=== PATIENT | male | born 1970 | race Two or more races ===

== ENCOUNTER 2024-05-12 14:51 | Emergency (ER) | payer MEDICAID, SELFPAY ==
[2024-05-12 14:53] VITALS: BMI 28.5
[2024-05-12 15:06] VITALS: BP 146/101; PULSE 61; RESP 20; TEMP 36.8; O2SAT 98
--- NOTE | 2024-05-12 15:11 | XR_ITS ---
Examination: PA lateral chest 2 views TECHNIQUE: Upright PA lateral chest 2 views Exam date and time: May 12, 2024 1541 hours INDICATIONS: Chest pain today FINDINGS: Normal heart size. Lungs are clear. The osseous structures are intact IMPRESSION: No active disease
--- NOTE | 2024-05-12 15:11 | EKG_ITS ---
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
--- NOTE | 2024-05-12 15:11 | XR_ITS ---
Examination: CT brain head without contrast. 2-D sagittal coronal reconstructions Date and time of exam:May 12, 2024 1535 hours INDICATIONS: Onset left-sided head pain and numbness today CTDI: vol (mGy):57.4 DLP: (mGycm):1252 Technique: Multiple CT axial sections of the brain have been obtained, 5 mm slice thickness. Contrast has not been administered. 2-D sagittal, coronal reconstructions have been obtained Low dose protocols were performed. One or more of the following dose reduction techniques were used; automated exposure control, adjustment of the mA and/or KV according to patient size, use of iterative reconstruction technique. Findings: No significant ventricular enlargement. Intra-axial or extra-axial hemorrhage density is not seen. No mass effect or midline shift Basal cisterns are not remarkable. Fourth ventricle is midline. Cranial vault intact. Impression: Negative for acute hemorrhage, mass effect or midline shift As clinically warranted, brain MRI follow-up would best assess for demyelinating disease, acute ischemic change
--- NOTE | 2024-05-12 15:12 | PD.EDRME ---
Rapid Medical Screening Exam RME Arrival date/time: 05/12/24 14:51 53-year-old male presents emergency dept today with complaints of joint pain left-sided chest pain and left-sided head pain Chief Complaint: Neuro Symptoms/Deficit Vital signs: Vital Signs Temperature 98.3 F 05/12/24 15:06 Pulse Rate 61 05/12/24 15:06 Respiratory Rate 20 05/12/24 15:06 Blood Pressure 146/101 H 05/12/24 15:06 Pulse Oximetry (%) 98 05/12/24 15:06 Oxygen Delivery Method Room Air 05/12/24 15:06
[2024-05-12 15:35] LABS: Basophils # (Auto) 0.1 Thou/mm3 (0.0-0.2); Basophils % (Auto) 1 % (0-2.5); Eosinophils # (Auto) 0.2 Thou/mm3 (0.0-0.5); Eosinophils % (Auto) 2 % (0-10); Hematocrit 42.9 % (41.0-53.0); Immature Granulocytes % (Auto) 0 % (0-0); Immature Granulocytes Auto 0.02 Thou/mm3 (0.00-0.00); Lymphocytes # (Auto) 2.8 Thou/mm3 (1.0-4.8); Lymphocytes % (Auto) 33 % (10-50); Mean Corpuscular Hemoglobin 30.2 pg (25.0-35.0); Mean Corpuscular Volume 86 fL (80-100); Monocytes # (Auto) 0.6 Thou/mm3 (0.0-0.8); Monocytes % (Auto) 7 % (0-12); Neutrophils # (Auto) 4.9 Thou/mm3 (1.8-7.7); Neutrophils % (Auto) 57 % (37-80); Nucleated Red Blood Cell % 0 /100 WBC (0); Platelet Count 185 Thou/mm3 (140-440); RDW Standard Deviation 39.6 fL (35.1-43.9); Red Blood Count 4.97 Miln/mm3 (4.50-5.90); White Blood Count 8.6 Thou/mm3 (3.8-10.6)
[2024-05-12 15:54] LABS: B-Type Natriuretic Peptide < 20 pg/mL (0-100)
[2024-05-12 15:56] LABS: Alanine Aminotransferase 84 U/L (10-49); Albumin, Serum 4.6 gm/dL (3.5-5.0); Albumin/Globulin Ratio 1.6 (1.2-2.2); Alkaline Phosphatase 136 U/L (46-116); Anion Gap 7 (7-16); Aspartate Amino Transferase 46 U/L (0-34); BUN/Creatinine Ratio 9 Ratio (12-20); Bilirubin,Total 1.5 mg/dL (0.3-1.2); Blood Urea Nitrogen 9 mg/dL (9-23); Calcium 9.4 mg/dL (8.3-10.6); Calcium (Corrected) 9.4 mg/dL (8.5-10.1); Carbon Dioxide 28.4 mMol/L (20.0-31.0); Chloride 102 mMol/L (98-107); Estimated Creatinine Clearance 101.1 mL/min (>60); Globulin 2.9 gm/dL (2.3-3.5); Glucose 104 mg/dL (74-106); LDH (Lactate Dehydrogenase) 239 U/L (120-246); Magnesium 1.8 mg/dL (1.6-2.6); Osmolality,Calculated 272 (275-295); Potassium 4.2 mMol/L (3.4-5.1); Sodium 137 mMol/L (136-145); Total Protein 7.5 gm/dL (5.7-8.2); Troponin I < 0.002 ng/mL (0.0-0.045); eGFR > 60 See Note
[2024-05-12 16:00] LABS: Partial Thromboplastin Time 25.4 Seconds (22.0-36.0); Prothrombin Time 10.7 Seconds (9.0-12.2)
[2024-05-12 16:21] LABS: Collection Type, Urine Clean Catch; Squamous Epithelial Cell,Urine 0 /hpf (0-5)
--- NOTE | 2024-05-12 16:32 | EDNOTE_ITS ---
<Statement entered by Marina Salcido MD - 05/12/24 17:56> As co-signing physician, I was present and available for consult prn. I concur with the plan and care as documented by the midlevel provider. ED General RME/HPI General Chief complaint: Neuro Symptoms/Deficit Stated complaint: LEFT ARM,HEAD AND CHEST PAIN, SINCE YESTERDAY Time Seen by Provider: 05/12/24 15:59 Arrival date/time: 05/12/24 14:51 CC: The chest pain radiates to the left arm, some mild leg pain and some numbness in the top of his right head. Patient is quite anxious stating all symptoms started approximately 2 weeks ago. No OTC medicines taken no follow-up with primary care provider. Currently the chest pain is absent RME / HPI RME / HPI narrative: 05/12/24 14:51 53-year-old male presents emergency dept today with complaints of joint pain left-sided chest pain and left-sided head pain Related Data Home Medications ?Medication ?Instructions ?Recorded ?Confirmed atorvastatin 40 mg tablet 40 mg PO QDAY 05/09/2206/07 lisinopril 20 mg tablet 20 mg PO BID 05/09/22 Previous Rx's ?Medication ?Instructions ?Recorded hydrocodone 5 mg-acetaminophen 325 1 tab PO BID PRN pa in #10 tabs 06/01/22 mg tablet Allergies Allergy/AdvReac Type Severity Reaction Status Date / Time No Known Allergies Allergy Verified 05/12/24 14:55 Review of Systems Review of Systems Narrative Review of Systems: GEN: No fever, no chills, no weight loss EYES: No discharge, no visual changes, no pain HEENT: No ear pain, no congestion, no sore throat PULM: No shortness of breath, no cough, no congestion CV: + chest pain, no dyspnea on exertion, no palpitations GI: No nausea, no vomiting, no diarrhea, no pain, no constipation : No frequency, no urgency, no dysuria MUSC/SKEL: No joint pain, no back pain SKIN: No rash PSYCH: No hallucinations, no depression HEME/LYMPH: No easy bleeding or bruising tendencies NEURO: No weakness, no headache Past Medical History Past Medical History CARDIAC: Negative Cardiac Disorders RESPIRATORY: Negative Asthma GENITOURINARY: Negative Renal Disease ENDOCRINE: Negative Diabetes Mellitus Type 2 HEMATOLOGIC: Negative Sickle Cell Disease Social History SMOKING STATUS: Never smoker ED Exam Narrative Physical exam: [General: Anxious but not in any acute distress Head normocephalic HEENT: Eyes pupils are PERRLA EOMs are intact mouth pink dry membranes uvula is midline all other subsystems of ATTR within acceptable limits Neck is supple nontender Chest equal chest rise nontender to palpation Respiratory: Clear to auscultation no wheezes crackles or rubs CV: Rate rhythm is regular no murmurs rubs or clicks Abdomen is soft nontender no masses positive bowel sounds all 4 quadrants Back: No CVA tenderness no spinous process tenderness from cervical spine thoracic and lumbar spine Skin: Intact no petechiae rash induration ulceration or crepitus Extremities: Moving all extremity against resistance cap refill less than 2 seconds neurosensory intact Neuro: Awake alert oriented x3 Glascow coma 15 no focal deficits] Course Quality Measures none Orders Category Date Time Status EKG (ED ONLY) *Do not use* NOW Care 05/12/24 15:[address] head/brain wo con Stat Exams 05/12/24 15:11 Completed EKG (ED Only) Stat Exams 05/12/24 15:11 Draft XR chest 2V Stat Exams 05/12/24 15:11 Completed B-Type Natriuretic Peptide Stat Lab 05/12/24 15:20 Completed CBC Stat Lab 05/12/24 15:20 Completed Comprehensive Metabolic Panel Stat Lab 05/12/24 15:20 Completed Drug Screen,Urine Stat Lab 05/12/24 16:09 Received LDH (Lactate Dehydrogenase) Stat Lab 05/12/24 15:20 Completed Magnesium Stat Lab 05/12/24 15:20 Completed Partial Thromboplastin Time Stat Lab 05/12/24 15:20 Completed Prothrombin Time with INR Stat Lab 05/12/24 15:20 Completed Troponin I Stat Lab 05/12/24 15:20 Completed Urinalysis Stat Lab 05/12/24 16:09 Received Vital Signs Vital signs: Vital Signs Temperature 98.3 F 05/12/24 15:06 Pulse Rate 61 05/12/24 15:06 Respiratory Rate 20 05/12/24 15:06 Blood Pressure 146/101 H 05/12/24 15:06 Pulse Oximetry (%) 98 05/12/24 15:06 Oxygen Delivery Method Room Air 05/12/24 15:06 [facility] Patient data External records reviewed:: [facility] previous records Clinical information provided by:: patient Social determinants that could affect healthcare access:: none Patient has the following chronic illnesses:: None How is presenting disease/condition affected by chronic disease/condition?: u neffected by Evaluation data The following diagnostics were reviewed and interpreted by me:: lab results, radiology exam(s) and EKG tracing(s) Lab and/or radiology exams considered but not ordered:: EKG performed at 1515 shows ventricular rate of 6 7 NM interval 150 QRS of 109 QTc of 401 this is sinus rhythm CBC shows no acute leukocytosis anemia thrombocytopenia CMP shows no electrolyte imbalances renal impairment. There is mild transaminitis with a T. bili of 1.5, however when compared to an old CMP these are significantly improved. Troponin is negative BNP is negative Head CT is negative for any acute finding requires emergent or immediate intervention. Interpretation Summary: I suspect the patient is more anxious than anything else given the symptoms, the patient is greatly reassured that there is no acute finding requires emergent or immediate intervention. Medications Medications considered but not ordered:: None Medication administrations:: None Consultations Consultation(s) initiated? (list below): No Diagnosis Differential Diagnosis ED Complaint MDM: [facility] pneumonia Most likely diagnosis given after review of the tests above:: Chest pain Admission Indicated Admission indicated?: not indicated Explain why admission is indicated or not indicated:: Stable for discharge Admission Request Was there a request for admission?: No Disposition Plan Disposition Plan: Discharge Discharge Attestation Discharge Attestation: The patient and all family members were given an opportunity to ask questions and understood the discharge instructions. Discharge instructions specifically effects, indications for sooner follow up or return to the emergency department, and the expected course of current diagnosis. Patient condition: Stable Medical Decision Making Differential Diagnosis Differential Diagnosis: [facility] pneumonia Lab Data 05/12/24 15:20 05/12/24 15:20 Labs: Lab Results 05/12/24 Range/Units 15:20 WBC 8.6 (3.8-10.6) Thou/mm3 RBC 4.97 (4.50-5.90) Miln/mm3 Hgb 15.0 (13.5-16.0) g/dL Hct 42.9 (41.0-53.0) % MCV 86 (80-100) fL MCH 30.2 (25.0-35.0) pg MCHC 35.0 (31.0-37.0) g/dl RDW Std Deviation 39.6 (35.1-43.9) fL Plt Count 185 (140-440) Thou/mm3 Neut % (Auto) 57 (37-80) % Lymph % (Auto) 33 (10-50) % [place] % (Auto) 7 (0-12) % Eos % (Auto) 2 (0-10) % Baso % (Auto) 1 (0-2.5) % Neut # (Auto) 4.9 (1.8-7.7) Thou/mm3 Lymph # (Auto) 2.8 (1.0-4.8) Thou/mm3 [place] # (Auto) 0.6 (0.0-0.8) Thou/mm3 Eos # (Auto) 0.2 (0.0-0.5) Thou/mm3 Baso # (Auto) 0.1 (0.0-0.2) Thou/mm3 Immature Gran # (Auto) 0.02 H (0.00-0.00) Thou/mm3 Absolute Nucleated RBC 0.00 (0.00-0.00) Thou/mm3 Immature Gran % 0 (0-0) % Nucleated RBC % 0 (0) /100 WBC PT 10.7 (9.0-12.2) Seconds INR 1.0 (0.9-1.3) APTT 25.4 (22.0-36.0) Seconds Sodium 137 (136-145) mMol/L Potassium 4.2 (3.4-5.1) mMol/L Chloride 102 (98-107) mMol/L Carbon Dioxide 28.4 (20.0-31.0) mMol/L Anion Gap 7 (7-16) BUN 9 (9-23) mg/dL Creatinine 1.0 (0.6-1.3) mg/dL Estim Creat Clear Calc 101.1 (>60) mL/min eGFR > 60 (60 - ) See Note BUN/Creatinine Ratio 9 L (12-20) Ratio Glucose 104 (74-106) mg/dL Calculated Osmolality 272 L (275-295) Calcium 9.4 (8.3-10.6) mg/dL Corrected Calcium 9.4 (8.5-10.1) mg/dL Magnesium 1.8 (1.6-2.6) mg/dL Total Bilirubin 1.5 H (0.3-1.2) mg/dL AST 46 H (0-34) U/L ALT 84 H (10-49) U/L Alkaline Phosphatase 136 H (46-116) U/L Lactate Dehydrogenase 239 (120-246) U/L Troponin I < 0.002 (0.0-0.045) ng/mL B-Natriuretic Peptide < 20 (0-100) pg/mL Total Protein 7.5 (5.7-8.2) gm/dL Albumin 4.6 (3.5-5.0) gm/dL Globulin 2.9 (2.3-3.5) gm/dL Albumin/Globulin Ratio 1.6 (1.2-2.2) Discharge Plan Plan Patient Disposition: HOME (Self Care) Patient condition on transfer: Stable Prescriptions/Referrals Prescriptions/Med Rec: No Action lisinopril 20 mg tablet 20 mg PO BID atorvastatin 40 mg tablet 40 mg PO QDAY hydrocodone-acetaminophen 5-325 mg tablet 1 tab PO BID MDD 10 PRN (Reason: pain) Qty: 10 0RF Referrals: Clive Atkinson MD [Physician] - In 1 week No Primary/Family,Physician [Primary Care Provider] - In 1 week Problem List Clinical Impression: Chest pain, Paresthesia Patient/Caregiver Discharge Instructions Education Materials: ED Chest Pain, Uncertain Cause Print Language: Kinyarwanda Stand Alone Forms: Brooke Award Info., Work/School Release, Patient Portal Info Letter PA/MADELYN Supervising Physician PA/MADELYN Supervising Physician: Parker Perales
[2024-05-12 16:34] LABS: Bilirubin,Urine Negative (Negative); Blood,Urine Negative (Negative); Clarity,Urine Clear (Clear/Hazy); Color,Urine Yellow (Lt Yel-Yel); Glucose, Urine Negative (Negative); Ketones,Urine Negative (Negative); Leukocyte Esterase,Urine Negative (Negative); Nitrite,Urine Negative (Negative); PH,Urine 6.5 (5.0-7.0); Protein,Urine Trace (Neg - Trace); RBC,Urine 3 /hpf (0-3); Specific Gravity,Urine 1.027 (1.001-1.035); Urobilinogen,Urine Negative mg/dL (0.0-1.0); WBC,Urine 1 /hpf (0-5)
[2024-05-12 16:47] LABS: Amphetamine/Methamp Scrn,U Negative (Negative); Barbiturate Screen,Urine Negative (Negative); Benzodiazepines Screen,Urine Negative (Negative); Benzoylecgonine Screen, Ur Negative (Negative); Fentanyl Screen,Urine Negative (Negative); Opiate Screen,Urine Negative (Negative); THC Screen,Urine Negative (Negative)
== END 2024-05-12 17:11 | disposition home or self-care (01) ==
PROVIDERS: Nurse Practitioner Primary Care; Emergency Provider Emergency Medicine
DX: R07.89 Other chest pain (principal); R20.2 Paresthesia of skin; R51.9 Headache, unspecified; R20.0 Anesthesia of skin; I44.4 Left anterior fascicular block
CPT/HCPCS: 36415; 70450; 71046; 80053; 80307; 81001; 83615; 83735; 83880; 84484; 85025; 85610; 85730; 93005; 99284